=== PATIENT | female | born 1935 | race Caucasian/White ===

== ENCOUNTER 2020-09-11 05:46 | Emergency (ER) | payer MEDICARE, BC ==
--- NOTE | 2020-09-11 05:54 | EDM.PDOC ---
ED HPI GENERAL MEDICAL PROBLEM - General Stated Complaint: MEDICAL [facility]IA [facility] Time Seen by Provider: 09/11/20 05:49 Source of Information: Reports: Patient, EMS History Limitations: Reports: Altered Mental Status - History of Present Illness INITIAL COMMENTS - FREE TEXT/NARRATIVE: Patient was brought to the emergency room via EMS secondary to being found walking around [facility] parking lot initially called EMS was approximately around 4:30 PM but she refused transport she was inside [facility] initially she did given her name and address apparently lawn for cement attempted to contact someone in the home but there was no answer so she was brought to the emergency room for evaluation. Is able to tell her name her date of and her address she does not know her phone number who her doctor is there any past medical history and she state while she was at [facility] --accu-check by EMS 114 Onset: Today - Related Data Allergies Allergy/AdvReac Type Severity Reaction Status Date / Time No Known Allergies Allergy Verified 09/11/20 06:13 Home Meds: Home Meds Digoxin 250 mcg PO DAILY 09/11/20 [History] Docusate Sodium [Colace] 100 mg PO DAILY 09/11/20 [History] Donepezil [Aricept] 5 mg PO BEDTIME 09/11/20 [History] Multivit with Minerals/Lutein [A Thru Z Advanced Formula Tab] 1 each PO DAILY 09/11/20 [History] gemfibroziL [Gemfibrozil] 600 mg PO BID 09/11/20 [History] ED ROS GENERAL - Review of Systems Review Of Systems: Unable To Obtain Reason Not Obtained: Has no complaints she is pleasantly confused; see HPI ED EXAM, GENERAL - Physical Exam Exam: See Below Exam Limited By: Altered Mental Status (Is pleasantly confused knows her name date of and address unable to provide phone numbers or any other details) General Appearance: Alert, WD/WN, No Apparent Distress, Other (patient is noted to be dressed in sleeveless housedress/nightgown with no shoes/slippers/socks; s he does have slight body odor but nothing that is strong/concerning for poor hygiene issues) Eye Exam: Bilateral Eye: EOMI, Normal Inspection, PERRL Ears: Normal External Exam Nose: Normal Inspection Throat/Mouth: Normal Inspection Head: Atraumatic, Normocephalic Neck: Normal Inspection, Supple, Non-Tender, Full Range of Motion Respiratory/Chest: No Respiratory Distress, Lungs Clear, Normal Breath Sounds, No Accessory Muscle Use Cardiovascular: Normal Peripheral Pulses, Regular Rate, Rhythm, No Edema, No Murmur Peripheral Pulses: 2+: Radial (L), Radial (R) GI/Abdominal: Normal Bowel Sounds, Soft, Non-Tender, No Distention. No: Guarding, Rigid (Female) Exam: Deferred Rectal (Female) Exam: Deferred Back Exam: Normal Inspection Extremities: Normal Inspection, No Pedal Edema, Normal Capillary Refill Neurological: Alert Psychiatric: Normal Affect, Normal Mood Skin Exam: Warm, Dry, Intact, Normal Color Course - Vital Signs Text/Narrative:: 0600--record reviewed Teresita's was located and contacted nurse that spoke with him on the phone he did report that he heard knocking on the door which was apparently the police trying to contact him but he could not get out of bed to answer the door he reported that he noted that she was missing approximately 15 minutes ago but otherwise was unaware per ER nurse interpretation of phone conversation there is questionable ability for him to be taking care of his and himself appropriately although this is an unknown situation for us will to come to the emergency room and requested that Sho her daughter be contacted the numbers on the chart and she is noted to live in [place] area call was attempted by ER nurse message was left second call will be attempted in about 10 to 15 minutes if inability to reach her or she does not call back along for cement will be requested to go to her home to attempt contact 0610--since shift clinic charting was reviewed for patient status in [facility] she is noted to be a patient of Dr. Vanegas last seen at the clinic on 11/23/2019. PMH--HLP, tinnitis, GERD, anxiety, A-fib, DM2, Dementia w/o behavioral di sturbance Meds--donepezil, gemfibrozil, digoxin, colace, MVI Tob--former --Per record recent clinic visit in October 2019 patient was brought to the clinic for concern about showing signs of memory loss and Teresita did not think so but there were some signs as she was getting lost in [place] [facility] and she was trying to get to a grocery store and cannot find her way noticed with possible late onset early dementia they did talk about medications and she was started on Aricept at that visit have been not been any follow-up visits since that time it is noted that there were 2 attempted communications sent to Chandana Katz on 08/27/2020 and 07/22/2020 0616--call back from [id number]; [employer] spoke to her and she is on her way to the ER at this time 0700--patient's son and [id number] are present in the emergency room at this time with them tonsiva's events concerns regarding patient safety [id number] Sho who is primary responsibility for her in-laws that she knew this was coming they have been discussing that with PCM as well as her in- laws briefly looking at correction possibilities time Sho will stay with her in-laws until they are able to find placement I did discuss with them that clinic follow-up would be necessary to help with the process of getting admitted to correction as there are some tests that need to be done to include TB mercy ting and immunization updates and the clinic may also be able to help them they do have a correction in mind contact clinic today for further discussion and assistance in this process. To run to the house to get clothing for Ms. Lo and then patient will be ready for discharge Last Recorded V/S: Last Vital Signs Temp 96.2 F L 09/11/20 05:52 Pulse 60 09/11/20 05:52 Resp 23 H 09/11/20 05:52 BP 178/127 H 09/11/20 05:52 Pulse Ox 96 09/11/20 05:52 Departure - Departure Time of Disposition: 07:03 Disposition: Home, Self-Care 01 Clinical Impression: Dementia, Hypertension, Encounter for medical screening examination - Discharge Information *PRESCRIPTION DRUG MONITORING PROGRAM REVIEWED*: Not Applicable *COPY OF PRESCRIPTION DRUG MONITORING REPORT IN PATIENT ROBER: Not Applicable Instructions: Dementia Caregiver Guide, Dementia Referrals: PCP,None [Primary Care Provider] - Sepsis Event Note (ED) - Focused Exam Vital Signs: Vital Signs Temp Pulse Resp BP Pulse Ox 09/11/20 05:52 96.2 F L 60 23 H 178/127 H 96
== END 2020-09-11 07:40 | disposition home or self-care (01) ==
LOC: JP.ED 05:46
DX: I10 Essential (primary) hypertension (principal); F03.90 Unspecified dementia, unspecified severity, without behavioral disturbance, psychotic disturbance, mood disturbance, and anxiety; I48.91 Unspecified atrial fibrillation; E11.9 Type 2 diabetes mellitus without complications; Z79.899 Other long term (current) drug therapy
CPT/HCPCS: 99283

== ENCOUNTER 2021-06-11 16:15 | Emergency (ER) | payer MEDICARE, BC ==
[2021-06-11] MEDS ORDERED: OLANZapine 5 MG Tab PO ONE (18:42)
[2021-06-12] MEDS ORDERED: QUEtiapine 25 MG Tab PO ONE (07:27)
[2021-06-12] MEDS ORDERED: Digoxin 125 MCG Tab PO ONE (07:27)
[2021-06-12 07:45] LABS: CORONAVIRUS COVID-19 NAA NEGATIVE (NEGATIVE)
[2021-06-12] MEDS ORDERED: Citalopram 10 MG Tab PO SCH (09:00)
== END 2021-06-12 14:05 | disposition home or self-care (01) ==
LOC: JP.ED 16:15
DX: R46.89 Other symptoms and signs involving appearance and behavior (principal); I48.91 Unspecified atrial fibrillation; E11.9 Type 2 diabetes mellitus without complications; F03.90 Unspecified dementia, unspecified severity, without behavioral disturbance, psychotic disturbance, mood disturbance, and anxiety; Z87.891 Personal history of nicotine dependence; Z79.899 Other long term (current) drug therapy; Z20.822 Contact with and (suspected) exposure to COVID-19
CPT/HCPCS: 0241U; 36415; 80053; 81001; 84443; 85025; 99285; A9270; 99283

== ENCOUNTER 2022-10-28 08:45 | Emergency (ER) | payer MEDICARE, BC ==
[2022-10-28 09:47] LABS: BASOPHILS ABSOLUTE AUTO 0.04 K/uL (0.00-0.10); BASOPHILS PERCENT AUTO 0.7 % (0.1-1.3); EOSINOPHILS ABSOLUTE AUTO 0.16 K/uL (0.00-0.40); EOSINOPHILS PERCENT AUTO 2.9 % (0.0-5.4); HEMATOCRIT 38.3 % (34.3-46.0); HEMOGLOBIN 13.5 g/dL (11.2-15.5); IMMATURE GRAN PERCENT AUTO 0.4 % (0.0-0.7); LYMPHOCYTES ABSOLUTE AUTO 1.76 K/uL (0.8-3.3); LYMPHOCYTES PERCENT AUTO 31.4 % (11.4-47.7); MEAN CORPUSCULAR HEMOGLOBIN 31.3 pg (31.6-35.5); MEAN CORPUSCULAR HGB CONC 35.2 g/dL (31.6-35.5); MEAN CORPUSCULAR VOLUME 88.9 fL (81.4-99.0); MONOCYTES PERCENT AUTO 7.1 % (3.3-12.6); NEUTROPHILS ABSOLUTE AUTO 3.22 K/uL (1.0-7.6); NEUTROPHILS PERCENT AUTO 57.5 % (40.0-78.1); PLATELET COUNT,PLT 222 K/uL (130-375); RED BLOOD CELL COUNT 4.31 M/uL (3.77-5.24); WHITE BLOOD CELL COUNT,WBC 5.6 K/uL (3.2-11.0)
[2022-10-28 10:12] LABS: C-REACTIVE PROTEIN 0.2 mg/dL (0.0-0.3)
[2022-10-28 10:17] LABS: IMMATURE GRAN ABSOLUTE AUTO 0.02 K/uL (0.00-0.23)
[2022-10-28 10:28] LABS: SEDIMENTATION RATE MANUAL 46 mm/hr (0-25)
[2022-10-28 11:05] LABS: CALCIUM 9.2 mg/dL (8.5-10.1); CREATININE 0.9 mg/dL (0.6-1.0); EST CRCL DRUG DOSING (CG) 42.78 mL/min; POTASSIUM,K 4.1 mmol/L (3.6-5.2)
[2022-10-28 11:06] LABS: ANION GAP 15.1 mmol/L (5.0-14.0)
== END 2022-10-28 12:52 ==
LOC: JP.ED 08:45
DX: M94.0 Chondrocostal junction syndrome [Tietze] (principal); F03.90 Unspecified dementia, unspecified severity, without behavioral disturbance, psychotic disturbance, mood disturbance, and anxiety; R91.8 Other nonspecific abnormal finding of lung field; E11.9 Type 2 diabetes mellitus without complications; I48.91 Unspecified atrial fibrillation; E78.5 Hyperlipidemia, unspecified; I10 Essential (primary) hypertension; K21.9 Gastro-esophageal reflux disease without esophagitis; Z79.899 Other long term (current) drug therapy
CPT/HCPCS: 36415; 71045; 71250; 80048; 84145; 84484; 85025; 85379; 85651; 86140; 99285

== ENCOUNTER 2023-04-19 13:01 | Emergency (ER) | payer MEDICARE, BC ==
[2023-04-19 13:23] LABS: BASOPHILS ABSOLUTE AUTO 0.05 K/uL (0.00-0.10); BASOPHILS PERCENT AUTO 0.6 % (0.1-1.3); EOSINOPHILS ABSOLUTE AUTO 0.09 K/uL (0.00-0.40); EOSINOPHILS PERCENT AUTO 1.2 % (0.0-5.4); HEMATOCRIT 39.1 % (34.3-46.0); HEMOGLOBIN 13.5 g/dL (11.2-15.5); IMMATURE GRAN ABSOLUTE AUTO 0.03 K/uL (0.00-0.23); IMMATURE GRAN PERCENT AUTO 0.4 % (0.0-0.7); LYMPHOCYTES ABSOLUTE AUTO 2.16 K/uL (0.8-3.3); LYMPHOCYTES PERCENT AUTO 27.7 % (11.4-47.7); MEAN CORPUSCULAR HEMOGLOBIN 30.6 pg (31.6-35.5); MEAN CORPUSCULAR HGB CONC 34.5 g/dL (31.6-35.5); MEAN CORPUSCULAR VOLUME 88.7 fL (81.4-99.0); MONOCYTES ABSOLUTE AUTO 0.95 K/uL (0.20-0.90); MONOCYTES PERCENT AUTO 12.2 % (3.3-12.6); NEUTROPHILS ABSOLUTE AUTO 4.53 K/uL (1.0-7.6); NEUTROPHILS PERCENT AUTO 57.9 % (40.0-78.1); PLATELET COUNT,PLT 234 K/uL (130-375); RED BLOOD CELL COUNT 4.41 M/uL (3.77-5.24); WHITE BLOOD CELL COUNT,WBC 7.8 K/uL (3.2-11.0)
[2023-04-19 13:39] LABS: ANION GAP 16.9 mmol/L (5.0-14.0); BLOOD UREA NITROGEN,BUN 28 mg/dL (7-18); CARBON DIOXIDE,CO2 27 mmol/L (21-32); CHLORIDE,CL 95 mmol/L (100-108); CREATININE 1.2 mg/dL (0.6-1.0); ESTIMATED GFR 44 mL/min (>60); GLUCOSE RANDOM 168 mg/dL (74-106); MAGNESIUM 1.7 mg/dL (1.8-2.4); POTASSIUM,K 3.9 mmol/L (3.6-5.2); SODIUM,NA 135 mmol/L (140-148)
[2023-04-19] MEDS ORDERED: Magnesium Oxide 400 MG Tab PO ONE (13:40)
== END 2023-04-19 16:03 | disposition home or self-care (01) ==
LOC: JP.ED 13:01
DX: R19.7 Diarrhea, unspecified (principal); E86.0 Dehydration; E83.42 Hypomagnesemia; F03.90 Unspecified dementia, unspecified severity, without behavioral disturbance, psychotic disturbance, mood disturbance, and anxiety; E11.9 Type 2 diabetes mellitus without complications; I10 Essential (primary) hypertension; Z79.84 Long term (current) use of oral hypoglycemic drugs; Z79.899 Other long term (current) drug therapy; Z88.8 Allergy status to other drugs, medicaments and biological substances
CPT/HCPCS: 36415; 71045; 80048; 83735; 84145; 85025; 99284; A9270

== ENCOUNTER 2024-11-01 03:43 | Emergency (ER) | payer MEDICARE, BC ==
[2024-11-01] MEDS: Furosemide 40 MG/4 ML VIAL IVPUSH ONE (04:03)
[2024-11-01] MEDS: Albuterol/Ipratropium 3.0-0.5 MG/3 ML Neb Soln NEB ONE (04:03)
[2024-11-01 04:08] LABS: BASOPHILS ABSOLUTE AUTO 0.06 K/uL (0.00-0.10); BASOPHILS PERCENT AUTO 0.8 % (0.1-1.3); EOSINOPHILS ABSOLUTE AUTO 0.18 K/uL (0.00-0.40); EOSINOPHILS PERCENT AUTO 2.5 % (0.0-5.4); HEMATOCRIT 35.3 % (34.3-46.0); HEMOGLOBIN 11.1 g/dL (11.2-15.5); IMMATURE GRAN PERCENT AUTO 0.1 % (0.0-0.7); LYMPHOCYTES ABSOLUTE AUTO 2.03 K/uL (0.8-3.3); LYMPHOCYTES PERCENT AUTO 28.4 % (11.4-47.7); MEAN CORPUSCULAR HEMOGLOBIN 29.6 pg (31.6-35.5); MEAN CORPUSCULAR HGB CONC 31.4 g/dL (31.6-35.5); MEAN CORPUSCULAR VOLUME 94.1 fL (81.4-99.0); MONOCYTES PERCENT AUTO 9.8 % (3.3-12.6); NEUTROPHILS ABSOLUTE AUTO 4.18 K/uL (1.0-7.6); NEUTROPHILS PERCENT AUTO 58.4 % (40.0-78.1); PLATELET COUNT,PLT 375 K/uL (130-375); RED BLOOD CELL COUNT 3.75 M/uL (3.77-5.24); WHITE BLOOD CELL COUNT,WBC 7.2 K/uL (3.2-11.0)
[2024-11-01 04:25] LABS: IMMATURE GRAN ABSOLUTE AUTO 0.01 K/uL (0.00-0.23)
[2024-11-01 04:38] LABS: A/G RATIO 0.5 (1.2-2.2); ALANINE AMINOTRANSFERASE,ALT 16 U/L (12-78); ALBUMIN 2.4 g/dL (3.4-5.0); ALKALINE PHOSPHATASE 144 U/L (46-116); ASPARTATE AMNIOTRANSFERASE,AST 29 U/L (15-37); BILIRUBIN TOTAL 0.3 mg/dL (0.2-1.0); BLOOD UREA NITROGEN,BUN 18 mg/dL (7-18); CARBON DIOXIDE,CO2 25 mmol/L (21-32); CHLORIDE,CL 105 mmol/L (100-108); CREATININE 0.6 mg/dL (0.6-1.0); ESTIMATED GFR 87 mL/min (>60); GLUCOSE RANDOM 87 mg/dL (74-106); POTASSIUM,K 3.5 mmol/L (3.6-5.2); PROTEIN TOTAL,TP 7.3 g/dL (6.4-8.2); SODIUM,NA 139 mmol/L (140-148)
[2024-11-01 04:41] LABS: ANION GAP 12.5 mmol/L (5.0-14.0)
[2024-11-01] MEDS: Sodium Chloride 0.9% 10 ML Syringe FLUSH PRN (05:33)
[2024-11-01] MEDS: Iopamidol 612 MG/ML 100 ML Bottle IV SCH (05:33)
[2024-11-01] MEDS: Sodium Chloride 0.9% 100 ML IV SCH (05:33)
== END 2024-11-01 10:30 ==
LOC: JP.ED 03:43 → EEVIPCON 03:43 → JP.ED 10:30
DX: J90 Pleural effusion, not elsewhere classified (principal); I48.91 Unspecified atrial fibrillation; E78.00 Pure hypercholesterolemia, unspecified; E11.9 Type 2 diabetes mellitus without complications; Z51.5 Encounter for palliative care; Z88.8 Allergy status to other drugs, medicaments and biological substances; Z79.899 Other long term (current) drug therapy
CPT/HCPCS: 36415; 71045; 71260; 80053; 80162; 85025; 94640; 96374; 99285; A9270; J1938; Q9967